=== PATIENT | female | born 2000 | race Caucasian/White ===

== ENCOUNTER 2024-02-12 16:01 | Emergency (ER) | payer OTHER ==
[~2024-02-12] VITALS: Ht 162.6 cm; Wt 72.6 kg
[2024-02-12 16:17] VITALS: BP 139/89; PULSE 89; RESP 17; TEMP 99; O2SAT 97
[2024-02-12] MEDS: LIDOCAINE MPF 1% 10 MG/ML VIAL INJ ONE (16:44)
[2024-02-12] MEDS: BACITRACIN OINT 500 UNITS/GM PKT TP ONE (16:44)
[2024-02-12] MEDS: ACETAMINOPHEN 325 MG TAB PO ONE (16:45)
[2024-02-12] MEDS ORDERED: BACI-418 TP (18:02)
== END 2024-02-12 18:16 | disposition home or self-care (01) ==
LOC: MED 16:01
DX: S61.216A Laceration without foreign body of right little finger without damage to nail, initial encounter (principal); R03.0 Elevated blood-pressure reading, without diagnosis of hypertension; Z79.899 Other long term (current) drug therapy; W25.XXXA Contact with sharp glass, initial encounter; Y93.G1 Activity, food preparation and clean up; Y92.89 Other specified places as the place of occurrence of the external cause; Y99.8 Other external cause status
CPT/HCPCS: 12001; 73140; 90471; 90715; 99283; J2001

== ENCOUNTER 2024-02-19 14:23 | Emergency (ER) | payer OTHER ==
[~2024-02-19] VITALS: Ht 162.6 cm; Wt 74.8 kg
[~2024-02-19 14:23] MED LIST: BACI-418 TP
[2024-02-19 14:46] VITALS: BP 119/69; PULSE 74; RESP 18; TEMP 97.6; O2SAT 100
[2024-02-19 15:00] VITALS: BP 124/82; PULSE 88; RESP 16; TEMP 98; O2SAT 99
== END 2024-02-19 15:00 | disposition home or self-care (01) ==
LOC: MED 14:23
DX: S61.216D Laceration without foreign body of right little finger without damage to nail, subsequent encounter (principal); Z48.00 Encounter for change or removal of nonsurgical wound dressing; Z79.899 Other long term (current) drug therapy; X58.XXXD Exposure to other specified factors, subsequent encounter
CPT/HCPCS: 99282